=== PATIENT | female | born 1980 | race Caucasian/White ===

== ENCOUNTER 2016-08-11 14:05 | Emergency (ER) | payer MEDICAID ==
[2016-08-11 14:25] VITALS: BP 140/92; PULSE 81
[2016-08-11 14:27] VITALS: BP 125/88; PULSE 96
--- NOTE | 2016-08-11 14:49 | PD ---
HPI Chief Complaint Possible leakage of fluid Date Seen: Aug 11, 2016 Time Seen: 14:54 (Shani Leach MD R1) Travel History International Travel<30 Days: No Contact w/Intl Traveler<30Days: No Known Affected Area: No (Shani Leach MD) History of Present Illness HPI Patient is a 36 year old at 39 and 4/7 weeks, EDC 08/14/2016 who presents to the [facility] with possible LOF for the last two days. She notes moist underwear upon wakening, and no obvious gush of fluid. No contractions, had small amount of vaginal bleeding three nights ago. No headache, visual changes, RUQ pain, edema, shortness of breath. She has some mild sinus congestion but this is chronic and unchanged. [facility] with [facility] was 08/06/2016. Para: 0 : 1 (Shani Leach MD R1) History Past Medical History Medical History: Denies Significant Hx (Shani Leach MD) Obstetric History Obstetric History G1: current work-up notable for +HPV, GBS (Shani Leach MD) Past Surgical History Narrative Surgical Breast augmentation 10+yrs ago [place] teeth removal (Shani Leach MD) Family History Narrative Family History Mother with thyroid disease Father with HTN (Shani Leach MD) Social History Alcohol Use: No Tobacco Use: No Substance Abuse: No (Shani Leach MD) Allergies-Medications (Allergen,Severity, Reaction): Coded Allergies: No Known Allergies (Unverified , 08/06/16) Home Meds Active Scripts W/O A W/ Fe Asparto G (Prenate Pixie 10-0.6-0.4-200 mg)1 Cap Cap Sample #2 Prov: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 SKIN: Warm and dry. No rashes. HEAD: Normocephalic and atraumatic. EYES: No scleral icterus. No injection or drainage. ENT: No nasal drainage noted. Mucous membranes pink. Airway patent. NECK: Supple, trachea midline. No JVD. CARDIOVASCULAR: Regular rate and rhythm without murmurs, gallops, or rubs. RESPIRATORY: Breath sounds equal bilaterally. No accessory muscle use. ABDOMEN/GI: Abdomen soft, non-tender, bowel sounds present, no rebound, no guarding Gravid to approx 38 weeks size GENITOURINARY: External Genitalia: intact and normal in appearance Cervix: 1/0/-3, soft Presentation: vertex Membranes: intact. Amnisure negative Uterine Contractions: none noted FHT's: Category: 1 Baseline: 135 Reactive: 160 Variability: mod Decels: absent EXTREMITIES: No cyanosis or edema. BACK: Nontender without obvious deformity. No CVA tenderness. NEUROLOGICAL: Awake and alert. Motor and sensory grossly within normal limits. Five out of 5 muscle strength in all muscle groups. Normal speech. (Shani Leach MD R1) Data Data Vital Signs Reviewed: Yes (VS 125/96, P96, T 99.0F) Orders Vital Signs (Adult) .ON ADMISSION (08/11/16 14:30) ^ Labor Status (08/11/16 14:30) ^ Non Stress Test (08/11/16 14:30) ^ Hydration (08/11/16 14:30) (Shani Leach MD R1) MDM Medical Record Reviewed: Yes Narrative Course / MDM 36 year old at 39 and 4/7 weeks, EDC 08/14/2016 who presents to the [facility] with possible LOF. Amnisure is negative. Cervix is 1 cm dilated, minimally effaced, presentation vertex and high. Intrauterine : Amnisure is negative Not in labor Category 1 tracing Likely dehydrated, given PO hydration UA sent to assess for UTI Patient will be discharged after UA results, if abnormal will treat for UTI Encouraged hydration Educated on labor signs and to return to [facility] if these symptoms arise GBS negative on July 29, [address] Reyes (Shani Leach MD R1) Diagnosis Diagnosis: Primary Impression: with 39 completed weeks gestation Additional Impression: Antepartum dehydration Disposition: DISCHARGE HOME Condition: Stable Patient Instructions: Having Your Baby: The Labor Process (GEN) Attestation Patient seen at the bedside. Will d/c home, negative AmniSure. Labor precautions. (Meagan Reyes MD) Shani Leach MD R1 Aug 11, 2016 14:49 Meagan Reyes MD Aug 11, 2016 15:15
[2016-08-11 16:19] LABS: BLOOD, URINE NEG (NEG); GLUCOSE,URINE NEG (NEG); KETONE, URINE NEG (NEG); MUCUS URINE FEW /lpf (OCC); NITRITE,URINE NEG (NEG); PH, URINE 6.5 (5.0-8.5); SQUAMOUS EPITHELIAL CELL URINE <1 /hpf (0-5); URINE COLOR YELLOW (YELLW/STRAW)
[2016-08-11 16:21] LABS: COMMENT (UR) CULT NOT INDICATED; CULTURE IF INDICATED CULT NOT INDICATED
--- NOTE | 2016-08-11 16:40 | PD ---
History of Present Illness Date Seen: Aug 11, 2016 Time Seen: 16:39 History of Present Illness ADDENDUM Patient was called at her documented phone number ([phone]) to update her on normal UA results. Patient had no questions and expressed understanding of results. She will follow up with [facility] on , August 13, 2016 as previously scheduled. (Shani Leach MD R1) Attestation Labs reviewed. Agree with resident's assessment/plan. (Meagan Reyes MD) Shani Leach MD R1 Aug 11, 2016 16:40 Meagan Reyes MD Aug 11, 2016 17:19
== END 2016-08-11 15:21 | disposition home or self-care (01) ==
LOC: HOBED 14:05
DX: O26.853 Spotting complicating pregnancy, third trimester (principal); E86.0 Dehydration; Z3A.29 29 weeks gestation of pregnancy
CPT/HCPCS: 59025; 81001; 84112

== ENCOUNTER 2016-08-14 01:48 | Inpatient (IN) | payer MEDICAID ==
[2016-08-14] VITALS (31 sets, daily range): BP systolic 107–164; BP diastolic 65–148; PULSE 67–237; RESP 16–18; TEMP 98–98.1
[2016-08-14] MEDS ORDERED: LACTATED RINGER'S 1000 ML INJ 1,000 ML IV PRN (02:35)
[2016-08-14] MEDS ORDERED: LACTATED RINGER'S 1000 ML INJ 1,000 ML IV SCH (02:35)
--- NOTE | 2016-08-14 02:37 | HHI.HP ---
History & Physical H&P Travel History International Travel<30 Days: No Contact w/Intl Traveler<30Days: No Known Affected Area: No History of Present Illness HPI This patient is a 36-year-old 1 para 0 EDC is August 14, 2016 presently at 40 weeks gestation she presents the chief complaint of onset of contractions this morning no ruptured membranes positive bloody show care was sutured Apus since 11 weeks' course is significant for a history of chronic UTIs rubella nonimmune history of an ASCUS Pap breast augmentation in her group B strep is negative History (Limited) History Past Medical History Narrative Medical No known drug allergies no major medical problems Obstetric History Obstetric History First Past Surgical History Narrative Surgical Breast augmentation Family History Family History: Negative Social History Alcohol Use: No Tobacco Use: No Substance Abuse: No Allergies-Medications Allergies-Medications (Allergen,Severity, Reaction): Coded Allergies: No Known Allergies (Unverified , 08/13/16) Home Meds Active Scripts W/O A W/ Fe Asparto G (Prenate Pixie 10-0.6-0.4-200 mg)1 Cap Cap Sample #2 Prov: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 Alert oriented 3 and cooperative in moderate distress secondary to uterine contractions CARDIOVASCULAR: Regular rate and rhythm without murmurs, gallops, or rubs. RESPIRATORY: Breath sounds equal bilaterally. No accessory muscle use. ABDOMEN/GI: Gravid term estimated weight 7 pounds Gravid to [-] weeks size term Fundal Height: [-] GENITOURINARY: External Genitalia: intact and normal in appearance BUS glands: [-] Cervix: [-] Midline Dilatation: [-] 5 cm Effacement: [-] 80% Station: [-] -2 Presentation: [-] Vertex Membranes: [intact o Uterine Contractions: [-] Every 3 minutes FHT's: Category: [-] 1 Baseline: [-]130 Reactive: [-] + Variability: [-] Moderate Decels: [-] 0 EXTREMITIES: No cyanosis or edema. 2+ reflexes NEUROLOGICAL: Awake and alert. Motor and sensory grossly within normal limits. Five out of 5 muscle strength in all muscle groups. Normal speech. Data Data Data Vital Signs Reviewed: Yes (blood pressure 131/83 pulse 79) Orders Ob (2e) Additional Admit Info (08/14/16 02:29) MDM MDM Medical Record Reviewed: Yes Interpretation(s) 36-year-old at 40 weeks Active labor Bloody show GBS negative Rubella nonimmune Plan Admit External monitor CBC type and screen Epidural at patient's request Anticipate vaginal delivery Rubella immunity Maria Guadalupe Couch MD Aug 14, 2016 02:35 Maria Guadalupe Couch MD Aug 14, 2016 02:37
[2016-08-14] MEDS ORDERED: SODIUM CHLORID 0.9% 500 ML INJ 500 ML IV PRN (02:45)
[2016-08-14] MEDS ORDERED: MINERAL OIL 10 ML VIAL TOPICAL PRN (02:45)
[2016-08-14] MEDS ORDERED: LIDOCAINE HCL 1% 50 ML VIAL INFIL PRN (02:45)
[2016-08-14] MEDS ORDERED: ONDANSETRON HCL 4 MG/2 ML VIAL IV PRN (02:45)
[2016-08-14] MEDS ORDERED: CITRIC ACID-SODIUM CITRATE LIQ 30 ML UDC PO SCH (02:45)
[2016-08-14] MEDS ORDERED: OXYTOCIN 30 UNITS-500ML PREMIX 500 ML IV ONE (02:45)
[2016-08-14] MEDS ORDERED: LIDOCAINE HCL 1% 50 ML VIAL I-DERMAL PRN (02:45)
[2016-08-14] MEDS ORDERED: SODIUM CHLOR 0.9% 1000 ML INJ 1,000 ML IV PRN (02:55)
[2016-08-14 03:03] LABS: AUTOMATED NEUTROPHIL # 15.3 TH/MM3 (1.8-7.7); BASOPHIL % 0.1 % (0.0-2.0); EOSINOPHIL % 0.1 % (0.0-4.0); HEMATOCRIT 37.5 % (35.0-46.0); HEMO FLAGS DIFF FINAL; LYMPH % 8.9 % (9.0-44.0); LYMPHOCYTE # 1.6 TH/MM3 (1.0-4.8); MEAN CELL VOLUME 91.2 FL (80.0-100.0); MEAN CORPUSCULAR HEMOGLOBIN 30.5 PG (27.0-34.0); MEAN CORPUSCULAR HGB CONC 33.5 % (32.0-36.0); MONO % 5.3 % (0.0-8.0); NEUT % 85.6 % (16.0-70.0); PLATELET COUNT 204 TH/MM3 (150-450); RED BLOOD COUNT 4.12 MIL/MM3 (4.00-5.30); RED CELL DISTRIBUTION WIDTH 12.4 % (11.6-17.2); WHITE BLOOD COUNT 17.8 TH/MM3 (4.0-11.0)
[2016-08-14] MEDS ORDERED: fentaNYL 2MCG-BUPIV 0.125% INJ 100 ML ONE (03:10)
[2016-08-14 03:15] LABS: BACTERIA, URINE RARE /hpf; BLOOD, URINE MOD (NEG); GLUCOSE,URINE NEG (NEG); KETONE, URINE TRACE mg/dL (NEG); MUCUS URINE FEW /lpf (OCC); NITRITE,URINE NEG (NEG); PH, URINE 6.5 (5.0-8.5); RENAL EPITHELIAL CELLS <1 /hpf; SQUAMOUS EPITHELIAL CELL URINE 2 /hpf (0-5); TRANSITIONAL EPI CELLS, URINE <1 /hpf; URINE COLOR YELLOW (YELLW/STRAW)
[2016-08-14 03:16] LABS: COMMENT (UR) CULT NOT INDICATED; CULTURE IF INDICATED CULT NOT INDICATED
--- NOTE | 2016-08-14 04:59 | PD.LABORPN ---
Subjective Subjective Patient resting comfortably in bed with Epidural in place. She is feeling anxious. Objective Vital Signs Vital Signs Date Time Temp Pulse Resp B/P Pulse Ox O2 Delivery O2 Flow Rate FiO2 08/14/16 04:45 92 144/120 08/14/16 04:40 89 129/70 08/14/16 04:40 229 08/14/16 04:35 83 117/68 08/14/16 04:35 74 08/14/16 04:30 82 08/14/16 04:30 92 113/65 08/14/16 04:25 87 08/14/16 04:25 79 129/77 08/14/16 04:20 91 135/92 08/14/16 04:20 81 08/14/16 04:15 89 08/14/16 04:15 93 136/89 08/14/16 04:11 80 131/107 08/14/16 04:09 80 147/112 Objective Pelvic Exam: Cervix: midposition Dilatation: 6-7 Effacement: 100 Station: -2 Presentation: vertex Membranes: bulging Uterine Contractions: q2-4min FHT's: Category: I Baseline: 140 Reactive: + Variability: moderate Decels: none Assessment/Plan Assessment and Plan 36 year old at 40-0/7 weeks gestation. 1. IUP- Category I tracing, reassuring. 2. Labor- cervical change noted, augment as needed 3. GBS negative 4. Anticipate dw Macey Malloy MD R2 Aug 14, 2016 04:58
--- NOTE | 2016-08-14 06:45 | PD.LABORPN ---
Subjective Subjective Patient resting comfortably in bed with epidural in place. Objective Vital Signs Vital Signs Date Time Temp Pulse Resp B/P Pulse Ox O2 Delivery O2 Flow Rate FiO2 08/14/16 05:30 98.0 72 18 112/66 08/14/16 05:30 70 08/14/16 05:25 73 08/14/16 05:20 77 08/14/16 05:20 77 120/78 08/14/16 05:15 110 08/14/16 05:15 76 115/84 08/14/16 05:10 81 119/72 08/14/16 05:10 76 08/14/16 05:05 80 08/14/16 05:05 89 117/87 08/14/16 05:00 84 116/76 08/14/16 05:00 83 08/14/16 04:56 140 135/70 08/14/16 04:55 82 08/14/16 04:50 237 08/14/16 04:50 87 164/148 08/14/16 04:45 92 144/120 08/14/16 04:40 89 129/70 08/14/16 04:40 229 08/14/16 04:35 83 117/68 08/14/16 04:35 74 08/14/16 04:30 82 08/14/16 04:30 92 113/65 08/14/16 04:25 87 08/14/16 04:25 79 129/77 08/14/16 04:20 91 135/92 08/14/16 04:20 81 08/14/16 04:15 89 08/14/16 04:15 93 136/89 08/14/16 04:11 80 131/107 08/14/16 04:09 80 147/112 Objective Pelvic Exam: Cervix: midposition Dilatation: 9 Effacement: 100 Station: 0 Presentation: vertex Membranes: AROM with clear fluid Uterine Contractions: q2-3min FHT's: Category: II Baseline: 140 Reactive: + Variability: moderate Decels: intermittent variable decelerations Assessment/Plan Assessment and Plan 36 year old at 40-0/7 weeks gestation. 1. IUP- Category II tracing, fluid bolus and position change, good accelerations and variability noted after interventions. 2. Labor- cervical change noted, AROM with clear fluid 3. GBS negative 4. Anticipate sdw Macey Malloy MD R2 Aug 14, 2016 06:45
--- NOTE | 2016-08-14 07:16 | PD.LABORPN ---
Subjective Subjective comfortable with epidural Objective Vital Signs Vital Signs Date Time Temp Pulse Resp B/P Pulse Ox O2 Delivery O2 Flow Rate FiO2 08/14/16 06:45 138 126/65 08/14/16 06:31 83 122/73 08/14/16 06:16 74 156/100 08/14/16 06:10 78 08/14/16 06:05 74 08/14/16 06:00 71 110/73 08/14/16 06:00 67 08/14/16 05:55 74 08/14/16 05:50 77 08/14/16 05:45 76 107/79 08/14/16 05:45 122 08/14/16 05:40 76 08/14/16 05:35 74 08/14/16 05:30 98.0 72 18 112/66 08/14/16 05:30 70 08/14/16 05:25 73 08/14/16 05:20 77 08/14/16 05:20 77 120/78 08/14/16 05:15 110 08/14/16 05:15 76 115/84 08/14/16 05:10 81 119/72 08/14/16 05:10 76 08/14/16 05:05 80 08/14/16 05:05 89 117/87 08/14/16 05:00 84 116/76 08/14/16 05:00 83 08/14/16 04:56 140 135/70 08/14/16 04:55 82 08/14/16 04:50 237 08/14/16 04:50 87 164/148 08/14/16 04:45 92 144/120 08/14/16 04:40 89 129/70 08/14/16 04:40 229 08/14/16 04:35 83 117/68 08/14/16 04:35 74 08/14/16 04:30 82 08/14/16 04:30 92 113/65 08/14/16 04:25 87 08/14/16 04:25 79 129/77 08/14/16 04:20 91 135/92 08/14/16 04:20 81 08/14/16 04:15 89 08/14/16 04:15 93 136/89 08/14/16 04:11 80 131/107 08/14/16 04:09 80 147/112 Objective Pelvic Exam: Cervix: [-]midline Dilatation: [-] 100 Effacement: [-] 9 Station: [-] +1 Presentation: [-] vtx Membranes: ruptured] AROM clear fluid Uterine Contractions: [-]q2 FHT's: Category: [-] 1 Baseline: [-] 140 Reactive: [-] Variability: [-] Decels: [-] Maria Guadalupe Couch MD Aug 14, 2016 07:16
[2016-08-14] MEDS ORDERED: DOCUSATE SODIUM 50 MG/SENNA 8.6 MG TAB PO PRN (08:15)
[2016-08-14] MEDS ORDERED: ACETAMINOPHEN 325 MG TAB PO PRN (08:15)
[2016-08-14] MEDS ORDERED: ONDANSETRON ODT 4 MG TAB PO PRN (08:15)
[2016-08-14] MEDS ORDERED: WITCH HAZEL 50%/GLYCERIN 12.5% 40 PAD JAR TOPICAL PRN (08:15)
[2016-08-14] MEDS ORDERED: ALUMINUM/MAGNESIUM/SIMETH 30 ML CUP PO PRN (08:15)
[2016-08-14] MEDS ORDERED: BENZOCAINE 20% TOPICAL SPRAY 60 ML CAN TOPICAL PRN (08:15)
[2016-08-14] MEDS ORDERED: SODIUM CHLORIDE 0.9% FLUSH 10 ML FLUSH IV FLUSH PRN (08:15)
[2016-08-14] MEDS ORDERED: oxyCODONE/ACETAMINOPHEN 5 MG/325 MG TAB PO PRN ×2 (08:15)
[2016-08-14] MEDS ORDERED: ZOLPIDEM TARTRATE 5 MG TAB PO PRN (08:15)
--- NOTE | 2016-08-14 08:17 | PD.OB.DELI ---
Anesthesia: Epidural Episiotomy: Midline Vaginal Delivery: Normal Presentation: Compound (head and right arm) Nuchal Cord: None Delayed cord clamping (45 sec): Yes Infant: Female One Minute : 9 Five Minute : 9 Weight: 6lb 7oz Placenta: Spontaneous delivery, Intact, 3 vessel cord Laceration: Episiotomy Repair: Chromic interrupted, Chromic running Additional Information Patient is a 36 year old female who delivered via spontaneous vaginal delivery of live female intact, over midline episiotomy done under epidural anesthesia. No nuchal cord. Spontaneous delivery of placenta with 3-vessel cord. Uterus firm to palpation, Pitocin started. Episiotomy was repaired using chromic suture , interrupted suture proximal closure and running suture subcuticular. Estimate blood loss is 200cc. Mother and doing well. Dr. Coto, attending, present for entire delivery and suture repair. (Shani Leach MD R1) Addendum Remarks I rounded on the patient. I rounded with the resident. I reviewed the resident' s assessment and plan of care for this patient. I am in agreement with the plan of care for this patient. (Maria Guadalupe Couch MD) Shani Leach MD R1 Aug 14, 2016 08:16 Maria Guadalupe Couch MD Aug 14, 2016 09:16
[2016-08-14] MEDS ORDERED: SODIUM CHLORIDE 0.9% FLUSH 10 ML FLUSH IV FLUSH SCH (09:00)
[2016-08-14] MEDS ORDERED: fentaNYL 2MCG-BUPIV 0.125% 100 ML EPIDURAL SCH (09:30)
[2016-08-14] MEDS ORDERED: ePHEDrine/NS 25 MG/5 ML SYR IV PRN (09:30)
[2016-08-14] MEDS ORDERED: NO SYSTEM NARCOTICS PRN (09:30)
[2016-08-14] MEDS ORDERED: DO NOT ADMINISTER ANTICOAGULANTS PRN (09:30)
[2016-08-14] MEDS: IBUPROFEN 600 MG TAB PO PRN ×2 (11:08→17:21)
[2016-08-14] MEDS ORDERED: MEASLES, MUMPS, RUBELLA VACCINE 0.5 ML VIAL SQ ONE (16:00)
[2016-08-14] MEDS ORDERED: DIPHTH/TETANUS/ACEL PERTUSSIS (BOOSTER) 0.5 ML VIAL/PFS IM ONE (16:00)
[2016-08-15] MEDS: IBUPROFEN 600 MG TAB PO PRN ×4 (00:55→18:17)
--- NOTE | 2016-08-15 07:20 | HHI.OB ---
Subjective Remarks day # 1. AFVSS overnight. Decreased lochia. Denies dysuria. No breast tenderness. She is feeding the baby via breast. Appetite good. No nausea or vomiting. Positive flatus/bowel movement. Ambulating well. Denies calf pain or shortness of breath. She is sore in her vaginal region and states that the sutures are bothering her. She requests a stronger pain medication than ibuprofen that does not have acetaminophen in it as acetaminophen gives her a stomach ache. Otherwise, she is doing well this morning. Objective Vitals/I&O Vital Signs Date Time Temp Pulse Resp B/P Pulse Ox O2 Delivery O2 Flow Rate FiO2 08/14/16 10:20 98.1 72 16 117/76 Objective Remarks GENERAL: Well-nourished, well-developed patient. CARDIOVASCULAR: Regular rate and rhythm without murmurs, gallops, or rubs. RESPIRATORY: Breath sounds equal bilaterally. No accessory muscle use. ABDOMEN/GI: Abdomen soft, non-tender. Fundus: Firm, non-tender at umbilicus. GENITOURINARY: Light to moderate bleeding. EXTREMITIES: No cyanosis or edema, non-tender, without signs of DVT. Medications and IVs Current Medications Medications (Trade) Dose Ordered Sig/Roge Route Start Time Stop Time Status Last Admin (NS Flush) 2 ml BID IV FLUSH 08/14/16 09:00 (NS Flush) 2 ml UNSCH PRN IV FLUSH 08/14/16 08:15 (Tylenol) 650 mg Q4H PRN PO 08/14/16 08:15 (Motrin) 600 mg Q6H PRN PO 08/14/16 08:15 08/15/16 00:55 (Percocet 5-325 Mg) 1 tab Q4H PRN PO 08/14/16 08:15 (Percocet 5-325 Mg) 2 tab Q4H PRN PO 08/14/16 08:15 (Americaine 20% Top Spr) 1 spray Q4H PRN TOPICAL 08/14/16 08:15 08/14/16 11:07 (Tucks Pads) 1 applic QID PRN TOPICAL 08/14/16 08:15 08/14/16 11:07 (Estella-Colace) 2 tab Q12H PRN PO 08/14/16 08:15 (Ambien) 5 mg HS PRN PO 08/14/16 08:15 (Mag-Al Plus Susp Liq) 15 ml Q8H PRN PO 08/14/16 08:15 (Zofran Odt) 4 mg Q6H PRN PO 08/14/16 08:15 Miscellaneous Information No systemic narcotics to be given except... UNSCH PRN .XX 08/14/16 09:30 08/15/16 09:29 Miscellaneous Information DO NOT ADMINISTER ANY ANTICOAGUL... UNSCH PRN .XX 08/14/16 09:30 08/15/16 09:29 (fentaNYL 2MCG-BUPIV 0.125% INJ) 100 ml @ 0 mls/hr TITRATE EPIDURAL 08/14/16 09:30 (ePHEDrine/NS 25 MG/5 ML SYR) 10 mg UNSCH PRN IV 08/14/16 09:30 08/15/16 09:29 Assessment/Plan Assessment and Plan 36 y/o female who is PPD# 1 s/p . -Continue routine care. -Oxycodone and Motrin PRN pain. -Encouraged OOB. Advised pelvic rest for 6 wks. -Re: ctrl, she would like to consider her options but will most likely choose OCP's. -Anticipate discharge home tomorrow. Macey Welsh Dr., MD R2 Aug 15, 2016 07:20
[2016-08-15] MEDS ORDERED: PERI8.6T PO (07:22)
[2016-08-15] MEDS ORDERED: IBUP-232 PO (07:22)
--- NOTE | 2016-08-15 07:22 | HHI.DCPOC ---
Discharge Care Plan Diagnosis: (1) (spontaneous vaginal delivery) Report Symptoms to Your Doctor -Temperature above 100.5 degrees -Redness, of incision or excessive or foul smelling drainage -Unusual pain or calf pain -Increased vaginal bleeding -Painful or difficulty urinating -Feelings of extreme sadness or anxiety after 2 weeks Goals to Promote Your Health * To prevent worsening of your condition and complications * To maintain your health at the optimal level Directions to Meet Your Goals Take your medications as prescribed Follow your dietary instruction Follow activity as directed Ensure plenty of rest for recovery Drink fluids for hydration Keep your appointments as scheduled Take your immunizations and boosters as scheduled If your symptoms worsen call your PCP, if no PCP go to Urgent Care Center or Emergency Room Smoking is Dangerous to Your Health. Avoid second hand smoke Call the 24-hour crisis hotline for domestic abuse at Macey Roth MD R2 Aug 15, 2016 07:22
[2016-08-15] MEDS ORDERED: NALOXONE HCL 0.4 MG/ML AMP IV PRN (07:30)
[2016-08-15 08:10] VITALS: BP 117/76; PULSE 74; RESP 16; TEMP 98.7
[2016-08-15 10:20] VITALS: BP 115/80; PULSE 102; RESP 16; TEMP 98.2
[2016-08-16] MEDS: IBUPROFEN 600 MG TAB PO PRN ×3 (00:20→14:50)
[2016-08-16 08:00] VITALS: BP 130/87; PULSE 70; RESP 18; TEMP 97.8
--- NOTE | 2016-08-16 08:25 | HHI.OB ---
Subjective Post Day: 2 Remarks 36 year old female s/p at 40/0 wks gestation, PPD 2. AFVSS. Patient reports she is feeling well but does endorse a headache. Bleeding is decreasing and pain is well-controlled. She is breast feeding and bonding well with baby. Ambulating without difficulties. She is tolerating a diet without nausea or vomiting. She has passed gas. Denies chest pain, dysuria, shortness of breath, or calf pain. (Ciara Lopez MD R2) Remarks Patient seen and evaluated with resident under direct supervision, agree with assessment and plan. (Richard Montero MD) Objective Vitals/I&O Vital Signs Date Time Temp Pulse Resp B/P Pulse Ox O2 Delivery O2 Flow Rate FiO2 08/15/16 10:20 98.2 102 16 115/80 Objective Remarks GENERAL: Well-nourished, well-developed patient. CARDIOVASCULAR: Regular rate and rhythm without murmurs, gallops, or rubs. RESPIRATORY: Breath sounds equal bilaterally. No accessory muscle use. ABDOMEN/GI: Abdomen soft, non-tender. Fundus: Firm, non-tender at umbilicus. GENITOURINARY: Light to moderate bleeding. EXTREMITIES: No cyanosis or edema, non-tender, without signs of DVT. Medications and IVs Current Medications Medications (Trade) Dose Ordered Sig/Roge Route Start Time Stop Time Status Last Admin (NS Flush) 2 ml BID IV FLUSH 08/14/16 09:00 (NS Flush) 2 ml UNSCH PRN IV FLUSH 08/14/16 08:15 (Tylenol) 650 mg Q4H PRN PO 08/14/16 08:15 (Motrin) 600 mg Q6H PRN PO 08/14/16 08:15 08/16/16 06:06 (Americaine 20% Top Spr) 1 spray Q4H PRN TOPICAL 08/14/16 08:15 08/14/16 11:07 (Tucks Pads) 1 applic QID PRN TOPICAL 08/14/16 08:15 08/14/16 11:07 (Estella-Colace) 2 tab Q12H PRN PO 08/14/16 08:15 08/16/16 07:56 (Ambien) 5 mg HS PRN PO 08/14/16 08:15 (Mag-Al Plus Susp Liq) 15 ml Q8H PRN PO 08/14/16 08:15 Ondansetron HCl 4 mg 4 mg Q6H PRN PO 08/14/16 08:15 (fentaNYL 2MCG-BUPIV 0.125% INJ) 100 ml @ 0 mls/hr TITRATE EPIDURAL 08/14/16 09:30 (Roxicodone) 10 mg Q4H PRN PO 08/15/16 08:30 (Roxicodone) 5 mg Q4H PRN PO 08/15/16 07:30 08/15/16 09:44 (Narcan Inj) 0.4 mg UNSCH PRN IV 08/15/16 07:30 (Ciara Lopez MD R2) Assessment/Plan Assessment and Plan 36 y/o female who is PPD# 2 s/p . -Continue routine care. -Oxycodone and Motrin PRN pain. -Encouraged OOB. Advised pelvic rest for 6 wks. -Re: ctrl, she would like to consider her options but will most likely choose OCP's. Declines Depo-Provera in hospital today. -Anticipate discharge home today with follow-up within 4-6 weeks with [facility]. wdw Dr. Montero (Ciara Lopez MD R2) Ciara Lopez MD R2 Aug 16, 2016 08:25 Richard Montero MD Aug 16, 2016 09:15
[2016-08-16] MEDS ORDERED: BREAST PUMP1 MI1 (11:43)
== END 2016-08-16 16:57 | disposition home or self-care (01) | DRG 775 ==
LOC: HOBED 01:48 → H2EA 02:29 → H1EA 10:00
PROVIDERS: ADMIT Obstetrics & Gynecology; ATTEND Obstetrics & Gynecology
PROC: 10E0XZZ Delivery of Products of Conception, External Approach (ICD-10-PCS; principal; 2016-08-14)
PROC: 0W8NXZZ Division of Female Perineum, External Approach (ICD-10-PCS; 2016-08-14)
PROC: 10907ZC Drainage of Amniotic Fluid, Therapeutic from Products of Conception, Via Natural or Artificial Opening (ICD-10-PCS; 2016-08-14)
PROC: 00HU33Z Insertion of Infusion Device into Spinal Canal, Percutaneous Approach (ICD-10-PCS; 2016-08-14)
PROC: 3E0R3CZ (ICD-10-PCS; 2016-08-14)
DX: O32.6XX0 Maternal care for compound presentation, not applicable or unspecified (principal); Z37.0 Single live birth; Z3A.40 40 weeks gestation of pregnancy
CPT/HCPCS: 81001; 85025; 86900; 86901; 99285